=== PATIENT | male | born 1955 ===

== ENCOUNTER 2017-12-01 11:47 | Emergency (ER) | payer OTHER ==
[2017-12-01] MEDS ORDERED: GABA-549 PO (11:55)
--- NOTE | 2017-12-01 11:55 | ER Report ---
History and Physical Time Seen By MD: 11:52 HPI/ROS CHIEF COMPLAINT: Left-sided jaw pain HISTORY OF PRESENT ILLNESS: Patient is a 62-year-old male comes emergency Department a left sided jaw pain is been having this now for about 3-4 years his senior and diagnosed with TMJ starting gabapentin had some relief but is been out he's currently on pain medications for right bicipital tear repair comes in today with worsening of his jaw pain this is not changed from his baseline he has no other neurological complaints no visual changes hearing changes or acuity changes patient has no additional complaints this time REVIEW OF SYSTEMS: Respiratory: No cough, no dyspnea. Cardiovascular: No chest pain, no palpitations. Gastrointestinal: No vomiting, no abdominal pain. Musculoskeletal: No back pain. Remainder of the 14 system rev: Yes Home Meds Reported Medications Omeprazole Magnesium (PRILOSEC OTC) 20 Mg Tablet.dr, 1 TAB PO QDAY, TAB 12/01/17 Aspirin (ASPIR 81) 81 Mg Tablet.dr, 81 MG PO QDAY, TAB 12/01/17 Lisinopril (LISINOPRIL) 20 Mg Tablet, 20 MG PO QDAY, TAB 12/01/17 Discontinued Scripts Gabapentin (GABAPENTIN) 300 Mg Capsule, 600 MG PO TID for 10 Days, #30 CAPSULE Prov:IDANIA BERUMEN MD 12/01/17 Reviewed Nurses Notes: Yes Old Medical Records Reviewed: Yes Constitutional Vital Sign - Last 24 Hours 12/01/17 11:52 Temp 98.5 Pulse 82 Resp 20 B/P (MAP) 189/96 O2 Delivery Room Air Physical Exam General Appearance: The patient is alert, has no immediate need for airway protection and no current signs of toxicity. [ ] Eyes: Pupils equal and round no injection. Respiratory: Chest is non tender, lungs are clear to auscultation. Cardiac: regular rate and rhythm [ ] Gastrointestinal: Abdomen is soft and non tender, no masses, bowel sounds normal. Musculoskeletal: Neck: Neck is supple and non tender. Extremities have full range of motion and are non tender. Skin: No rashes or lesions. Jaw pain jaw evaluation normal range of motion of her tracking no clicking mild tenderness to palpation of the anterior mastoid area otherwise unremarkable exam DIFFERENTIAL DIAGNOSIS: After history and physical exam differential diagnosis was considered for TMJ Medical Decision Making ED Course/Re-evaluation ED Course 62-year-old male returns emergency department with TMJ discomfort consistent with his prior presentations he is currently nothing by mouth pain medication will add gabapentin performed ENT for specialty follow-up no obvious physical exam findings he did have a biopsy in that area which was reportedly negative patient is comfortable at time of discharge Decision to Disposition Date: Dec 01, 2017 Decision to Disposition Time: 11:53 Depart Departure Latest Vital Signs Vital Signs Date Time Temp Pulse Resp B/P (MAP) Pulse Ox O2 Delivery O2 Flow Rate FiO2 12/01/17 11:52 98.5 82 20 189/96 Room Air Impression: Primary Impression: TMJ arthralgia Condition: Condition Unchanged Disposition: HOME OR SELF-CARE Referrals: ENRRIQUE GARCIA JR, MD 10 Days Patient Instructions: Arthroscopic TMJ Procedure (DC) IDANIA BERUMEN MD Dec 01, 2017 11:55
[2017-12-01] MEDS ORDERED: ASPI-1471 PO (12:01)
[2017-12-01] MEDS ORDERED: OMEP-218 PO (12:01)
[2017-12-01] MEDS ORDERED: LISI20TA29 PO (12:01)
--- NOTE | 2017-12-01 12:09 | ER Report ---
History and Physical Time Seen By MD: 12:09 Hx. of Stated Complaint: PATIENT REPORTS THAT HE HAS BEEN HAVING INCREASED HYPERTENSION FOR THE LAST WEEK. HE HAS JUST HAD HIS LISINOPRIL INCREASED FROM 10MG TO 20MG. HE ALSO REPORTS SOME TINGLING IN HIS LEFT HAND HPI/ROS CHIEF COMPLAINT: Elevated blood pressure HISTORY OF PRESENT ILLNESS: 62 yo male presents to ED with complaints of elevated BP. Reports his morning BP was 170/90's and then elevated to 190/90's following a stressful email. Pt denies chest pain or shortness of breath. States he felt numbness and tingling to left 4th and 5th fingers with elevated blood pressure. Reports that he has recently had an increase in his Lisinopril from 10 mg to 20 mg which he started on 11/27/17 follow appointment at [facility] on 11/24/17. REVIEW OF SYSTEMS: Respiratory: No cough, no dyspnea. Cardiovascular: No chest pain, no palpitations. Gastrointestinal: No vomiting, no abdominal pain. Musculoskeletal: Denies back pain. Reports left hand 4th and 5th finger numbness and tingling following elevated BP. States has improved since. Allergies: Coded Allergies: No Known Drug Allergies (Unverified , 12/01/17) Home Meds Active Scripts Clonidine Hcl (CLONIDINE HCL) 0.1 Mg Tablet, 0.1 MG PO BID Y for hypertension, # 30 TAB Prov:ALEJANDRA BONE 12/01/17 Reported Medications Omeprazole Magnesium (PRILOSEC OTC) 20 Mg Tablet.dr, 1 TAB PO QDAY, TAB 12/01/17 Aspirin (ASPIR 81) 81 Mg Tablet.dr, 81 MG PO QDAY, TAB 12/01/17 Lisinopril (LISINOPRIL) 20 Mg Tablet, 20 MG PO QDAY, TAB 12/01/17 Discontinued Scripts Gabapentin (GABAPENTIN) 300 Mg Capsule, 600 MG PO TID for 10 Days, #30 CAPSULE Prov:IDANIA BERUMEN MD 12/01/17 Past Medical/Surgical History Reports normal stress test 3 years prior. Denies routine smoking hx. States smokes a cigar occasionally. Reports he was started on lisinopril 2 to 3 years ago. Reports mother had [place] in 70's followed by double bypass. Denies surgical hx. Reviewed Nurses Notes: Yes Constitutional Vital Sign - Last 24 Hours 4/4/18 12/01/17 12/01/17 12/01/17 11:52 11:55 12:00 12:02 Temp 98.5 Pulse 82 83 Resp 20 66 B/P (MAP) 189/96 189/96 (127) 169/97 (121) Pulse Ox 96 O2 Delivery Room Air 12/01/17 12/01/17 12/01/17 12/01/17 12:17 12:30 12:32 13:13 Pulse 85 88 Resp 32 B/P (MAP) 161/100 (120) 145/81 (102) Pulse Ox 94 95 12/01/17 13:17 Pulse 69 Pulse Ox 94 Physical Exam General Appearance: The patient is alert, has no immediate need for airway protection and no current signs of toxicity. Eyes: Pupils equal and round no injection. Respiratory: Chest is non tender, lungs are clear to auscultation. Cardiac: regular rate and rhythm Gastrointestinal: Abdomen is soft and non tender, no masses, bowel sounds normal. Musculoskeletal: Neck: Neck is supple and non tender. Extremities have full range of motion and are non tender. Skin: No rashes or lesions. DIFFERENTIAL DIAGNOSIS: After history and physical exam differential diagnosis was considered for hypertension, secondary hypertension, or hypertensive emergency. Medical Decision Making Data Points Result Diagram: 12/01/17 1207 12/01/17 1207 Laboratory Hematology Test 12/01/17 11:53 12/01/17 12:07 Urine Color Straw Urine Clarity Clear Urine pH 5.0 pH (4.8-9.5) Urine Specific Molino 1.006 Urine Protein Negative mg/dL (NEGATIVE) Urine Glucose (UA) Negative mg/dL (NEGATIVE) Urine Ketones Negative mg/dL (NEGATIVE) Urine Blood Negative (NEGATIVE) Urine Nitrite Negative (NEGATIVE) Urine Bilirubin Negative (NEGATIVE) Urine Urobilinogen Negative mg/dL (0.2-1.9) Urine Leukocyte Esterase Negative (NEGATIVE) Urine RBC None /HPF (0-2/HPF) Urine WBC <1 /HPF (0-5/HPF) Urine Squamous Epithelial Cells None /LPF (</=FEW) Urine Bacteria Negative /HPF (NONE-FEW) Urine Mucus None /HPF (NONE-FEW) Red Blood Count 5.16 M/uL (4.00-5.60) Mean Corpuscular Volume 90.4 fL (80.0-96.0) Mean Corpuscular Hemoglobin 31.5 pg (26.0-33.0) Mean Corpuscular Hemoglobin Concent 34.9 g/dL (32.0-36.0) Red Cell Distribution Width 13.4 % (11.5-14.5) Mean Platelet Volume 8.6 fL (7.2-11.1) Neutrophils (%) (Auto) 61.8 % (39.4-72.5) Lymphocytes (%) (Auto) 25.1 % (17.6-49.6) Monocytes (%) (Auto) 10.1 % (4.1-12.4) Eosinophils (%) (Auto) 2.2 % (0.4-6.7) Basophils (%) (Auto) 0.8 % (0.3-1.4) Nucleated RBC Relative Count (auto) 0.1 /100WBC Neutrophils # (Auto) 3.4 K/uL (2.0-7.4) Lymphocytes # (Auto) 1.4 K/uL (1.3-3.6) Monocytes # (Auto) 0.6 K/uL (0.3-1.0) Eosinophils # (Auto) 0.1 K/uL (0.0-0.5) Basophils # (Auto) 0.0 K/uL (0.0-0.1) Nucleated RBC Absolute Count (auto) 0.01 K/uL Sodium Level 139 mmol/L (137-145) Potassium Level 3.9 mmol/L (3.5-5.0) Chloride Level 101 mmol/L (98-107) Carbon Dioxide Level 23 mmol/L (22-30) Blood Urea Nitrogen 17 mg/dl (9-21) Creatinine 1.00 mg/dl (0.66-1.25) Glomerular Filtration Rate Calc > 60.0 Random Glucose 96 mg/dl (75-110) Calcium Level 9.8 mg/dl (8.4-10.2) Total Bilirubin 0.5 mg/dl (0.2-1.3) Aspartate Amino Transf (AST/SGOT) 30 U/L (0-35) Alanine Aminotransferase (ALT/SGPT) 39 U/L (0-56) Alkaline Phosphatase 79 U/L (0-126) Troponin I < 0.012 ng/ml Total Protein 7.9 gm/dl (6.3-8.2) Albumin 4.7 g/dl (3.5-5.0) Chemistry Test 12/01/17 11:53 12/01/17 12:07 Urine Color Straw Urine Clarity Clear Urine pH 5.0 pH (4.8-9.5) Urine Specific Molino 1.006 Urine Protein Negative mg/dL (NEGATIVE) Urine Glucose (UA) Negative mg/dL (NEGATIVE) Urine Ketones Negative mg/dL (NEGATIVE) Urine Blood Negative (NEGATIVE) Urine Nitrite Negative (NEGATIVE) Urine Bilirubin Negative (NEGATIVE) Urine Urobilinogen Negative mg/dL (0.2-1.9) Urine Leukocyte Esterase Negative (NEGATIVE) Urine RBC None /HPF (0-2/HPF) Urine WBC <1 /HPF (0-5/HPF) Urine Squamous Epithelial Cells None /LPF (</=FEW) Urine Bacteria Negative /HPF (NONE-FEW) Urine Mucus None /HPF (NONE-FEW) White Blood Count 5.5 k/uL (4.5-11.0) Red Blood Count 5.16 M/uL (4.00-5.60) Hemoglobin 16.3 g/dL (14.0-18.0) Hematocrit 46.7 % (42.0-52.0) Mean Corpuscular Volume 90.4 fL (80.0-96.0) Mean Corpuscular Hemoglobin 31.5 pg (26.0-33.0) Mean Corpuscular Hemoglobin Concent 34.9 g/dL (32.0-36.0) Red Cell Distribution Width 13.4 % (11.5-14.5) Platelet Count 247 K/uL (150-450) Mean Platelet Volume 8.6 fL (7.2-11.1) Neutrophils (%) (Auto) 61.8 % (39.4-72.5) Lymphocytes (%) (Auto) 25.1 % (17.6-49.6) Monocytes (%) (Auto) 10.1 % (4.1-12.4) Eosinophils (%) (Auto) 2.2 % (0.4-6.7) Basophils (%) (Auto) 0.8 % (0.3-1.4) Nucleated RBC Relative Count (auto) 0.1 /100WBC Neutrophils # (Auto) 3.4 K/uL (2.0-7.4) Lymphocytes # (Auto) 1.4 K/uL (1.3-3.6) Monocytes # (Auto) 0.6 K/uL (0.3-1.0) Eosinophils # (Auto) 0.1 K/uL (0.0-0.5) Basophils # (Auto) 0.0 K/uL (0.0-0.1) Nucleated RBC Absolute Count (auto) 0.01 K/uL Glomerular Filtration Rate Calc > 60.0 Calcium Level 9.8 mg/dl (8.4-10.2) Total Bilirubin 0.5 mg/dl (0.2-1.3) Aspartate Amino Transf (AST/SGOT) 30 U/L (0-35) Alanine Aminotransferase (ALT/SGPT) 39 U/L (0-56) Alkaline Phosphatase 79 U/L (0-126) Troponin I < 0.012 ng/ml Total Protein 7.9 gm/dl (6.3-8.2) Albumin 4.7 g/dl (3.5-5.0) Urinalysis Test 12/01/17 11:53 Urine Color Straw Urine Clarity Clear Urine pH 5.0 pH (4.8-9.5) Urine Specific Molino 1.006 Urine Protein Negative mg/dL (NEGATIVE) Urine Glucose (UA) Negative mg/dL (NEGATIVE) Urine Ketones Negative mg/dL (NEGATIVE) Urine Blood Negative (NEGATIVE) Urine Nitrite Negative (NEGATIVE) Urine Bilirubin Negative (NEGATIVE) Urine Urobilinogen Negative mg/dL (0.2-1.9) Urine Leukocyte Esterase Negative (NEGATIVE) Urine RBC None /HPF (0-2/HPF) Urine WBC <1 /HPF (0-5/HPF) Urine Squamous Epithelial Cells None /LPF (</=FEW) Urine Bacteria Negative /HPF (NONE-FEW) Urine Mucus None /HPF (NONE-FEW) EKG/Imaging EKG Interpretation 12 lead EKG: Rhythm: normal sinus rhythm Diamond: normal QRS: normal ST segments: normal Imaging Exam type: CHEST PA AND LAT History: hypertension Comparison: None. Findings: The lungs are free of acute effusions, infiltrates or edema. There is no evidence of a pneumothorax or pneumomediastinum. Calcified granuloma projecting over the right upper lobe. The cardiac silhouette is normal in size. IMPRESSION: 1. No acute cardiopulmonary process is seen Report Dictated By: Emma Orosco MD at 12/01/2017 1:23 PM Report E-Signed By: Emma Orosco MD at 12/01/2017 1:23 PM ED Course/Re-evaluation ED Course The patient was admitted to exam room, history and physical were obtained. Differential diagnoses were considered. On examination lungs are clear, heart was regular. A CBC, CMP, urinalysis, EKG, chest x-ray, troponin were done. The lab results were unremarkable. EKG showed a normal sinus rhythm, chest x-ray showed no acute cardiopulmonary processes. During the time patient was here in the emergency room his blood pressure did go down, last blood pressure was 141/ 90. Patient states he is feeling better, numbness and tingling he is feeling his left hand has completely resolved. Due to his elevated blood pressure, we did give him a prescription of clonidine 0.1 mg. He is to take that twice a day as needed for blood pressure greater than 155/95. We discussed this with the patient who verbalized understanding and agreement. Patient will be discharged home at this time. He is to return to the emergency room if condition worsens. I would like him follow-up with Dr. Tracy in the next week. Decision to Disposition Date: Dec 01, 2017 Decision to Disposition Time: 13:41 Depart Departure Latest Vital Signs Vital Signs Date Time Temp Pulse Resp B/P (MAP) Pulse Ox O2 Delivery O2 Flow Rate FiO2 12/01/17 13:17 69 94 12/01/17 13:13 145/81 (102) 12/01/17 12:17 32 12/01/17 11:52 98.5 Room Air Impression: Primary Impression: Hypertension Condition: Improved Disposition: HOME OR SELF-CARE New Scripts Clonidine Hcl (CLONIDINE HCL) 0.1 Mg Tablet 0.1 MG PO BID Y for hypertension, #30 TAB Prov: ALEJANDRA BONE 12/01/17 Patient Instructions: Hypertension (ED) Additional Instructions: Follow up with primary care provider next week. Use Clonidine 0.1 mg twice daily as needed for hypertension. Return to Emergency Department for chest pain or elevated blood pressure following use of Clonidine. Follow heart healthy diet. Problem Qualifiers Primary Impression: Hypertension Hypertension type: essential hypertension Qualified Codes: I10 - Essential ( primary) hypertension ALEJANDRA BONE Dec 01, 2017 12:09
[2017-12-01] MEDS ORDERED: ASPIRIN 81 MG CHEW PO ONE (12:25)
[2017-12-01 12:38] LABS: PLATELET COUNT, AUTOMATED 247 K/uL (150-450)
--- NOTE | 2017-12-01 12:54 | EKG ---
[place]AC[place] [facility] [place] NAME: MEGHAN PETE : [id number] MR: [id number] V: [id number] EXAM DATE: ORDERING PHYSICIAN: ALEJANDRA BONE TECHNOLOGIST: BALBIR Villasenor Reason : HTN Blood Pressure : / mmHG Vent. Rate : 083 BPM Atrial Rate : 083 BPM P-R Int : 192 ms QRS Dur : 100 ms QT Int : 386 ms P-R-T Axes : 051 -22 035 degrees QTc Int : 453 ms Normal sinus rhythm Normal ECG No previous ECGs available Confirmed by DOMINGO CULVER ([id number]) on 12/01/2017 5:46:40 PM Referred By: [place] Confirmed By:DOMINGO CULVER
[2017-12-01 13:13] VITALS: BP 145/81
[2017-12-01] MEDS ORDERED: CLON-327 PO (13:29)
--- NOTE | 2017-12-01 13:29 | RADIOLOGY IMAGING REPORT ---
FACILITY: [facility] - [place] PATIENT NAME: Sarath Patel : 1955 MR: [id number] V: [id number] EXAM DATE: ORDERING PHYSICIAN: ALEJANDRA BONE TECHNOLOGIST: Location: [facility] - [place] Patient: Sarath Patel : 1955 Visit/Account:[id number] Date of Sevice: 12/01/2017 Exam type: CHEST PA AND LAT History: hypertension Comparison: None. Findings: The lungs are free of acute effusions, infiltrates or edema. There is no evidence of a pneumothorax or pneumomediastinum. Calcified granuloma projecting over the right upper lobe. The cardiac silhoue tte is normal in size. IMPRESSION: 1. No acute cardiopulmonary process is seen Report Dictated By: Emma Orosco MD at 12/01/2017 1:23 PM Report E-Signed By: Emma Orosco MD at 12/01/2017 1:23 PM WSN:[email or web address]
== END 2017-12-01 13:43 | disposition home or self-care (01) ==
LOC: ER 11:59
DX: I10 Essential (primary) hypertension (principal)
CPT/HCPCS: 71046; 81001; 82040; 82247; 82310; 82374; 82435; 82565; 82947; 84075; 84132; 84155; 84295; 84450; 84460; 84484; 84520; 85025; 93005; 99284